=== PATIENT | male | born 1975 | race Caucasian/White ===

== ENCOUNTER 2022-03-10 18:55 | Emergency (ER) | payer MEDICAID, SELFPAY ==
[2022-03-10 19:15] VITALS: BP 183/88; PULSE 68; RESP 18; TEMP 36.6; O2SAT 98; BMI 51.6
[2022-03-10] MEDS: KETOROLAC 30 MG/ML inj IVP (20:34)
[2022-03-10] MEDS: 0.9 % SODIUM CHLORIDE 1000 ml 1,000 ML IV (20:34)
--- NOTE | 2022-03-10 20:38 | CRLHL7_ITS ---
For Patients: As a result of the Century Cures Act, medical imaging exams and procedure reports are released immediately into your electronic medical record. You may view this report before your referring provider. If you have questions, please contact your health care provider. INDICATION: Right flank pain. Abdominal pain. TECHNIQUE: CT abdomen and pelvis without contrast. COMPARISON: None. FINDINGS: Lower chest: Motion artifact. No focal consolidation. Evaluation of solid organs is limited secondary to lack of IV contrast administration. Liver: Diffuse hepatic steatosis. No suspicious focal hepatic lesion. Gallbladder and bile ducts: Layering hyperdense gallbladder sludge. No significant gallbladder wall thickening. No biliary duct dilation. Pancreas: Unremarkable. Spleen: Unremarkable. Adrenal glands: Unremarkable. Kidneys: Punctate 1-2 mm calculus at the right ureterovesicular junction/right posterior urinary bladder, with mild right hydronephrosis. No left hydronephrosis. Retroperitoneum: No lymphadenopathy. Bowel and mesentery: Bowel is nonobstructed. Appendix is not definitively visualized. No significant ascites. No pneumoperitoneum. Bladder: Decompressed. Reproductive organs: No significant prostatomegaly. Pelvic lymph nodes: No suspicious lymphadenopathy. Vessels: Unremarkable for unenhanced study. Abdominal wall: No acute abdominal wall abnormality. Bones: Extensive multilevel degenerative changes of the spine. Bones are osteopenic. IMPRESSION: 1. Punctate 1-2 mm calculus at the right ureterovesicular junction versus right posterior urinary bladder, resulting in mild right hydronephrosis. 2. Layering hyperdense gallbladder sludge. 3. Diffuse hepatic steatosis. Please note that all CT scans at this facility use dose modulation, iterative reconstruction, and/or weight-based dosing when appropriate to reduce radiation dose to as low as reasonably achievable. Dictated by Ligia Cyr MD @ 03/10/2022 9:55:41 PM (Electronically Signed)
[2022-03-10 20:44] LABS: Basophils Absolute Auto 0.06 K/uL (0.00-0.30); Basophils Percent Auto 0.9 % (0.0-3.0); Eosinophils Absolute Auto 0.06 K/uL (0.00-0.50); Eosinophils Percent Auto 0.9 % (0.0-7.0); Hematocrit 49.3 % (37.0-53.0); Hemoglobin* 16.2 gm/dL (13.5-17.5); Immature Granulocytes Abs Auto 0.02 K/uL (0.00-0.30); Lymphocytes Percent Auto 17.7 % (20-44); Mean Corpuscular HGB Conc 33 gm/dL (32-36); Mean Corpuscular Hemoglobin 32 pg (26-34); Mean Corpuscular Volume 97 fL (80-100); Monocytes Percent Auto 6.9 % (0.0-11.0); Neutrophils Percent Auto 73.3 % (42.0-72.0); Platelet Count* 208 K/uL (140-440); Red Blood Count 5.06 m/uL (4.30-5.90); White Blood Count* 6.51 K/uL (4.50-11.00)
[2022-03-10 20:46] LABS: Appearance Urine Clear (Clear); Bilirubin Urine Negative (Negative); Blood Urine 2+ (Negative); Color Urine Yellow (Yellow); Glucose Urine Negative (Negative); Ketones Urine Negative (Negative); Leukocyte Esterase Urine Negative (Negative); Nitrite Urine Negative (Negative); Protein Urine Negative (Negative); Slide Review Reflex No; Specific Gravity Urine >= 1.030 (1.000-1.030); Urobilinogen Urine 0.2 (0.2-1.0)
[2022-03-10 20:50] LABS: Albumin* 4.2 g/dL (3.3-5.0); Chloride* 106 mmol/L (96-114); Potassium* 4.7 mmol/L (3.6-5.1); RBC Urine 25-50 (0-2); Sodium* 140 mmol/L (135-149); Squamous Epithelial Cell Urine Moderate (None-Few)
[2022-03-10 20:52] LABS: Creatinine* 1.4 mg/dL (0.5-1.5); Est. Creatinine Clearance* 68.73; Estimated Glomerular Filt Rate 62 ml/min
[2022-03-10 20:53] LABS: Alanine Aminotransferase* 46 U/L (4-50); Alkaline Phosphatase* 107 U/L (40-150); Aspartate Amino Transferase* 48 U/L (12-35); Blood Urea Nitrogen* 20 mg/dL (5-24); Calcium* 9.2 mg/dL (8.4-10.6); Carbon Dioxide* 30 mmol/L (20-32); Glucose* 107 mg/dL (60-115); Total Protein* 8.2 g/dL (6.0-8.3)
--- NOTE | 2022-03-10 22:01 | ED.ABDPAIN ---
HPI - Abdominal Pain General Chief Complaint: Flank Pain Stated Complaint: Pain in right back and side Time Seen by Provider: 03/10/22 20:07 History of Present Illness HPI narrative: patient is a 47-year-old gentleman comes in today with moderate to right-sided flank pain. He has had kidney stones in the distant past. He has had no nausea no vomiting no fevers no chills. No other abdominal pain no changes bowel or bladder. Patient has had symptoms just today. Patient has otherwise been in his usual state of health with no other major complaints or concerns. Related Data Home Medications Medication Instructions Recorded Confirmed furosemide 20 mg tablet mg 03/10/22 Previous Rx's Medication Instructions Recorded cyclobenzaprine 10 mg tablet 5 - 10 mg PO BID PRN #30 tab 03/04/22 meloxicam 15 mg tablet 7.5 - 15 mg PO QDAY #90 tab 03/04/22 tamsulosin 0.4 mg capsule (Flomax) 0.4 mg PO DAILY #10 cap 03/10/22 Allergies Allergy/AdvReac Type Severity Reaction Status Date / Time No Known Allergies Allergy Unverified 03/10/22 19:18 Review of Systems Status of ROS Reports: 10 or more systems reviewed and unremarkable except as noted in History and below [facility] Medical History Encounter for follow-up Encounter for pre-operative examination Surgical History History of appendectomy Family History Sister Breast cancer Mother Stroke Father Dementia Social History Narrative: Does not drink alcohol Does not use illicit drugs Non-smoker Smoking Status: Never smoker Exam Narrative: Exam Narrative: EXAM GENERAL: Patient appears comfortable and well. Patient morb EYES: No scleral icterus. LYMPH: No supraclavicular or cervical lymphadenopathy. SKIN: Visible skin seen during exam normal or with benign process only. EXT: No dependent lower extremity pedal edema. Peripheral venous insufficiency noted. HEART: Regular rate and rhythm with no murmurs, rubs, or gallops. LUNGS: Clear to auscultation bilaterally with no crackles or wheezes. ABD: Soft, non tender, non distended. PSYCH: Good eye contact, speech is not pressured. Const: Vital Signs, click to edit/add: Vital Signs - 24 hr 03/10/22 19:15 Temperature 97.8 F Pulse Rate [Left P ulse Oximeter] 68 Respiratory Rate 18 Blood Pressure [Ri ght Upper Arm] 183/88 H Pulse Oximetry 98 Course Course Hospital Course: CT of the abdomen pelvis upon my review shows a very small 1-2 mm stone. Remainder lab workup is unremarkable. UA shows signs of hematuria without infec Reevaluation(s) Reevaluation #1: Patient visited after receiving a Annalee of normal saline And 30 mg of IV Toradol. He is feeling much better. Time: 22:04 Vital Signs Vital signs: Initial Vital Signs Temperature 97.8 F 03/10/22 19:15 Temperature Source Temporal Artery Scan 03/10/22 19:15 Pulse Rate 68 03/10/22 19:15 Respiratory Rate 18 03/10/22 19:15 Blood Pressure 183/88 H 03/10/22 19:15 Blood Pressure Mean 119 03/10/22 19:15 Pulse Oximetry 98 03/10/22 19:15 Oxygen Delivery Method 03/10/22 19:15 Vital Signs Temperature 97.8 F 03/10/22 19:15 Pulse Rate 68 03/10/22 19:15 Respiratory Rate 18 03/10/22 19:15 Blood Pressure 183/88 H 03/10/22 19:15 Pulse Oximetry 98 03/10/22 19:15 Temperature 97.8 F 03/10/22 19:15 Pulse Rate 68 03/10/22 19:15 Respiratory Rate 18 03/10/22 19:15 Blood Pressure 183/88 H 03/10/22 19:15 Pulse Oximetry 98 03/10/22 19:15 MDM - Abdominal Pain Lab Data Labs: Lab Results 03/10/22 03/10/22 03/10/22 Range/Units 20:32 20:32 20:32 WBC 6.51 (4.50-11.00) K/uL RBC 5.06 (4.30-5.90) m/uL Hgb 16.2 (13.5-17.5) gm/dL Hct 49.3 (37.0-53.0) % MCV 97 (80-100) fL MCH 32 (26-34) pg MCHC 33 (32-36) gm/dL RDW Coeff of Niels 13.0 (11.5-15.5) % Plt Count 208 (140-440) K/uL Neut % (Auto) 73.3 H (42.0-72.0) % Lymph % (Auto) 17.7 L (20-44) % Bandera % (Auto) 6.9 (0.0-11.0) % Eos % (Auto) 0.9 (0.0-7.0) % Baso % (Auto) 0.9 (0.0-3.0) % Neut # (Auto) 4.80 (1.7-7.0) K/uL Lymph # (Auto) 1.20 (0.90-2.90) K/uL Bandera # (Auto) 0.40 (0.00-0.90) K/UL Eos # (Auto) 0.06 (0.00-0.50) K/uL Baso # (Auto) 0.06 (0.00-0.30) K/uL Abs Immat Gran (auto) 0.02 (0.00-0.30) K/uL Sodium 140 (135-149) mmol/L Potassium 4.7 (3.6-5.1) mmol/L Chloride 106 (96-114) mmol/L Carbon Dioxide 30 (20-32) mmol/L BUN 20 (5-24) mg/dL Creatinine 1.4 (0.5-1.5) mg/dL Estimated Creat Clear 68.73 Estimated GFR 62 ml/min Glucose 107 (60-115) mg/dL Calcium 9.2 (8.4-10.6) mg/dL Total Bilirubin 1.0 (0.1-1.5) mg/dL AST 48 H (12-35) U/L ALT 46 (4-50) U/L Alkaline Phosphatase 107 (40-150) U/L Total Protein 8.2 (6.0-8.3) g/dL Albumin 4.2 (3.3-5.0) g/dL Urine Color Yellow (Yellow) Urine Appearance Clear (Clear) Urine pH 5.0 (5.0-8.5) Ur Specific [place] >= 1.030 (1.000-1.030) Urine Protein Negative (Negative) Urine Glucose (UA) Negative (Negative) Urine Ketones Negative (Negative) Urine Blood 2+ A (Negative) Urine Nitrite Negative (Negative) Urine Bilirubin Negative (Negative) Urine Urobilinogen 0.2 (0.2-1.0) Ur Leukocyte Esterase Negative (Negative) Urine RBC 25-50 A (0-2) Urine WBC 5-10 A (0-5) Ur Squamous Epith Cells Moderate A (None-Few) Urine Bacteria None (None) Discharge Plan Discharge Clinical Impression: Renal lithiasis Patient Disposition: Home, Self-Care Condition: Stable Instructions: Kidney Stones (ED) Additional Instructions: Rest Fluids Tylenol Motrin Flomax as directed Activity Level: No Restrictions Discharge Diet: Regular Prescriptions: New tamsulosin [Flomax] 0.4 mg capsule 0.4 mg PO DAILY Qty: 10 2RF No Action meloxicam 15 mg tablet 7.5 - 15 mg PO QDAY Qty: 90 1RF Rx Instructions: daily for ongoing back pain cyclobenzaprine 10 mg tablet 5 - 10 mg PO BID PRN (Reason: muscle spasm) Qty: 30 2RF Rx Instructions: as needed for severe back pain furosemide 20 mg tablet 0RF Label Comments: TAKE 1 TABLET BY MOUTH DAILY Follow Up/Referrals: Ashley Dennis MD [Primary Care Provider] - Stand Alone Forms: Advanced Electron [employer] Info Instructions
[2022-03-10 22:23] VITALS: BP 138/80; PULSE 61; RESP 20; O2SAT 98
== END 2022-03-10 22:24 | disposition home or self-care (01) ==
PROVIDERS: Emergency Provider Internal Medicine; PCP Family Medicine
DX: N13.2 Hydronephrosis with renal and ureteral calculous obstruction (principal)
CPT/HCPCS: 36415; 74176; 80053; 81003; 81015; 85025; 87086; 87186; 96374; 99283; 99284; J1885; J7030

== ENCOUNTER 2022-06-23 15:30 | Outpatient (RCR) | payer MEDICAID, SELFPAY ==
--- NOTE | 2022-04-24 12:13 | PT.OPE ---
[facility] Outpatient Eval [facility] Outpatient Eval Start: 04/24/22 10:50 Freq: Status: Active Protocol: Document 04/24/22 10:50 KNRaul (Rec: 04/24/22 11:41 NOE Desktop) E-signed By Arnold Solorio, PT, ATC Physical Therapy Outpatient Evaluation Insurance Information Insurance Name [employer] Medical Diagnosis M54.50 low back pain, unspecified Treating Diagnosis low back pain pain in back of L knee Referring MD Brown Subjective Subjective History of back pain since . Symptoms are left sided lower back pain that extends into front-side of left thigh. Worse with standing, max stand duration estimated at about an hour. Maximum walking duration estimated at about an hour as well. Does better if he can lean on a cart while shopping. Symptoms present with sitting however less intense. Some recognition of LE deconditioning/strength loss in the L leg. Notices most often with standing from sitting as both UE's are required. Sleeps in a recliner because all positions in his bed create back symptoms. Medications for his back include: Cyclobenzaprene and Meloxicam. Taken at night as they cause drowziness. Pain Comments Constant varies in range from 6-8/10. Date of Last Physician Visit 04/10/22 Current Work Status Behavior Therapist Preferred Name Alex Miller Weight Bearing Status Full Weight Bearing Therapy Limitations/Systems Review Communication Ability,Affect Objective Range of Motion Trunk FLEX 30 degrees 14 inches fingertips to floor. EXT 2-3 degrees, pain producing. L SB 5 degrees, pain producing R SB 5 degrees L ROT 5 degrees, pain producing R ROT 5 degrees Strength LE strength 5/5 for all hip, knee and ankle patterns. Symmetric between sides Swelling Both LE's below the knee are swollen-wears compression socks. Palpation Moderate tenderness over L SI and lower lumbar vertebrae. Lumbar paraspinals and gluteal muscles on both sides hole elevated tension Posture Morbidly obese Stands in with a flexed trunk, forward shoulders and head. Increased lumbar lordosis. Sensation/Reflexes DTR patella R and L normal achilles R and L diminished ( likely from swelling in lower legs) Other/Pertinent Objective Walks with a forward lean, absent UE arm swing, no trunk: pelvis dissociation Assessment Assessment/Impression Simon is a pleasant 47 year old who is currently unemployed x 2-3 years. His ability to comprehend information is good yet his verbal delivery is slow and at times he stutters. He was referred to PT because of significant degenerative changes in his lumbar spine- bridging osteophytes exist between vertebral bodies, facet arthropathy and spondylolisthesis (unspecified level). Dr. Brown referred him to us to participate in the Back Program 2x/week for 6 -9 weeks. The patient appears very deconditioned and over weight. His ability for transfers from various surfaces is guarded and complicated for him. An increase in L sided lower back pain is reported with all transfers, standing and walking. He has very poor control of his pelvis, gluteal and abdominal muscles. All standing and walking has a flexion bias due to his lower spine condition and pain elicitation with upright positions. Simon understands the frequency and length of the designed back program and seems interested in participation. He also understands that complete elimination of back and leg symptoms may not be a realistic short term goal yet would find daily activities and the ability to return to work more likely if symptoms can be reduced. Primary Functional Limitations Standing Walking Climbing and descending stairs Lifting items from the floor Sleeping Plan of Care Rehabilitation Potential Fair Physical Therapy Goals 1.Performance of home ex program for core, hip and LE strengthening 2x/day x 7 days a week. 2.Able to stand while preparing meals x 15 min.s without limitation for L sided lower back or anterolateral L thigh pain. 3.To walk x 20 min.s working on equal stride length, more upright trunk posture while incorporating trunk rotation and arm swing. 4.Able to lift 20 pounds from floor to waist level using proper BM's x 5 repetitions without increase in lower back or leg pain. 5.Decrease constant pain symptom average to 4/10 or less in the lower back and left thigh Coordination/Communication With Referral Source Frequency/Duration 2x per week 6-9 weeks Patient Will Be Discharged From Therapy Independent w/HEP, Independently Progressing Evaluation Billing Untimed Code Treatment Minutes 45 PT Eval No Charge No Complexity Low Certification Information Physician Comment/Change Comment or Changes Physician NPI Number #
== END 2023-03-05 23:59 | disposition home or self-care (01) ==
PROVIDERS: PCP Family Medicine; Visit Provider Family Medicine
DX: M54.50 Low back pain, unspecified (principal); Z51.89 Encounter for other specified aftercare
CPT/HCPCS: 97110; 97161

== ENCOUNTER 2023-03-16 09:41 | Outpatient (CLI) | payer MEDICAID, SELFPAY | END 2023-03-16 09:42 | disposition home or self-care (01) | PROVIDERS: PCP Family Medicine; Visit Provider Family Medicine | DX: Z00.00 Encounter for general adult medical examination without abnormal findings (principal); R03.0 Elevated blood-pressure reading, without diagnosis of hypertension; R77.9 Abnormality of plasma protein, unspecified; E66.2 Morbid (severe) obesity with alveolar hypoventilation; R79.89 Other specified abnormal findings of blood chemistry; E66.01 Morbid (severe) obesity due to excess calories; Z13.6 Encounter for screening for cardiovascular disorders; Z11.59 Encounter for screening for other viral diseases | CPT/HCPCS: 80053; 80061; 84165; 84443; 86803 ==

== ENCOUNTER 2025-04-23 10:47 | Emergency (ER) | payer MEDICAID, SELFPAY ==
--- OUTSIDE RECORDS SUMMARY | 2025-04-23 10:50 | XMS_ITS | Clinical Summary ---
Author Organization [facility] [employer] [facility] Address [address] [place] [id number] Care Team Providers Care Vamp Seamer Name Role Phone Martha Garner MD Primary Care Provid er Allergies No known active allergies Medications miscellaneous medical supply miscIndications:O pen wound of both lower extremities, subsequent encounter,Lymphed coco due to venous insufficiency As directed. Bilateral compression velcro wraps 20-30 mmHg, knee high. Compression in the foot please. Style per patient preference. 2 unit 3 5 Active miscellaneous medical supply miscIndications:L ymphedema due to venous insufficiency As directed. Bilateral compression socks 20-30 mmHg, knee high. Style per patient preference. 2 unit 3 5 Active furosemide 20 mg tabletIndications :Bilateral leg edema Take 1 Tablet (20 mg) by mouth once daily in the morning. 7 Tablet 5 Active cyclobenzaprine 10 mg tabletIndications :Acute pain of right knee Take 1 Tablet (10 mg) by mouth 3 times daily if needed for Muscle Spasm. 14 Tablet 5 Active Active Problems Problem Noted Date Diagnosed Date Open wound of both lower extremities 06/10/2024 Venous stasis of both lower extremities 06/10/20 24 Encounters Date Type Department Care Team Description 03/12/2025 Travel 02/15/2025 8:00 PM CDT Ancillary Procedure [facility] [address] [place] [address] 02/15/2025 7:35 PM CDT Office Visit [facility] [id number] [place] [id number] Angel Lind PA Knee Pain/problem 02/15/2025 Travel from Last 3 Months Immunizations Immunization Administration Dates Next Due Td, Preservative Free (age >= 7 Years) Tdap 04/03/2011 Social History Tobacco Use Types Packs/Day Years Used Date Smoking Tobacco: Never Smokeless Tobacco: Never Alcohol Use Standard Drinks/Week Comments Never 0 (1 standard drink = 0.6 oz pur e alcohol) PHQ-2 Answer Date Recorded PHQ-2 TOTAL SCORE 3 06/08/2024 Social Connections Answer Date Recorded Do you often feel lonely or isolated from those around you? 0 07/05/2024 Financial Resource Strain Answer Date R ecorded Difficulty of Paying Living Expenses 3 07/05/2024 Difficulty of Paying Living Expenses Not on file 07/05/2024 Food Insecurity Answer Date Recorded Do you worry your food will run out before you are able to buy more? 1 07/05/2024 Transportation Needs Answer Date Record ed Does lack of transportation keep you from medica l appointments? 1 07/05/2024 Does lack of transportation keep you from work, meetings or getting things that you need? 1 07/05/2024 Housing Stability Answer Date Recorded What is your housing situation today? 1 07/05/2024 Utilities Answer Date Recorded Do you have trouble paying f or utilities (for example, heat, electricity, water, phone)? 1 07/05/2024 Sex and Gender Information Value Date Recorded Sex Assigned at Not on file Legal Sex Male 7:59 AM [employer] Gender Identity Not on file Sexual Orientation Not on file Obstetrics History Last Filed Vital Signs Vital Sign Reading Time Taken Comments Blood Pressure 147/82 02/15/2025 7:38 PM CDT Pulse 80 02/15/2025 7:38 PM CDT Temperature 36.1 C (96.9 F) 02/15/2025 7:38 PM CDT Respiratory Rate 20 02/15/2025 7:38 PM CDT Oxygen Saturation 90% 02/15/2025 7:38 PM CDT Inhaled Oxygen Concentration - - Weight 179 kg (394 lb 11.2 oz) 11/23/2024 9:16 A M CDT Height 180 cm (5' 10.87) 06/08/2024 2:19 PM CDT Body Mass Index 55.26 06/08/2024 2:19 PM CDT Plan of Treatment Health Maintenance Due Date Last Done Comments HIV for age 15-65 1989 Hepatitis C screening for age 18-79 02/10/1992 Hepatitis B series for 19+ ( 1 of 3 - 19+ 3-dose series) 1993 Colonoscopy through age 75 2019 Pneumococcal series for age 50+ (1 of 1 - PCV) 02/10/2024 Zoster (shingles) series for age 50+ (1 of 2) 02/10/2024 COVID-19 vaccine series (1 - 2023- season) 2025 Influenza Vaccine (#1) 2025 BMI (ht and wt on same day) for age 18+ 06/08/2025 06/08/2024 Depression screening for age 12+ 06/10/2025 06/10/2024, 06/10/2024, 06/08/2024 Lipids for age 45-75 06/08/2029 06/08/2024 Tetanus booster 03/16/2033 03/16/2023, 03/17, 04/03/2011 RSV vaccine for adults or pr egnancy (1 - 1-dose 75+ series) 2049 Procedures Procedure Name Priority Date/Time Associated Diagnosis Comments XR KNEE 3 VIEWS RIGHT STAT 02/15/2025 8:15 PM CDT Acute pain of right knee LIPID PANEL W REFLEX MEASURED LDL Routine 06/08/2024 3:41 PM CDT Screening for lipid disorders from Last 3 Months or Most Recently Relevant to Health Maintenance Results * XR KNEE 3 VIEWS RIGHT (02/15/2025 8:15 PM CDT) Anatomical Region Laterality Modality KNEES, KNEE R Computed Radiogr aphy 02/15/2025 8:15 PM CDT Impressions 02/15/2025 8:20 PM CDT Mild medial and patellofemoral compartment arthrosis. Bones are demineralized. There is no evidence of an acute fracture. Soft tissue swelling. Narrative 02/15/2025 8:20 PM CDT For Patients: As a result of the Cures Act, medical imaging exams and procedure reports are released immediately into your electronic medical record. You may view this report before your referring provider. If you have questions, please contact your health care provider. EXAM: XR KNEE 3 VIEWS RIGHT LOCATION: [facility] DATE: 02/15/2025 INDICATION: Acute pain of right knee. COMPARISON: None. Procedure Note Bg Dos Santos MD - 02/15/2025 For Patients: As a result of the Cures Act, medical imagingexams and procedure reports are released immediately into your electronicmedical record. You may view this report before your referring provider.If you have questions, please contact your health care provider. EXAM: XR KNEE 3 VIEWS RIGHT LOCATION: [facility] DATE: 02/15/2025 INDICATION: Acute pain of right knee. COMPARISON: None. IMPRESSION: Mild medial and patellofemoral compartment arthrosis. Bones aredemineralized. There is no evidence of an acute fracture. Soft tissueswelling. Angel [facility] Sera l Result * (ABNORMAL) LIPID PANEL W REFLEX MEASURED LDL [[id number]] (06/08/2024 3:41 PM CDT) [facility] CHOLESTEROL, TOTAL 168 <200 mg/dL [facility] HDL CHOLESTEROL 45 > OR = 40 mg/dL [facility] TRIGLYCERIDES 100 <150 mg/dL [facility] LDL-CHOLESTEROL 103(H) mg/dL (calc) [facility] Comment: Reference range: <100 Desirable range <100 mg/dL for primary prevention; <70 mg/dL for patients with CHD or diabetic patients with > or = 2 CHD risk factors. LDL-C is now calculated using the Aguilar calculation, which is a validated novel method providing better accuracy than the Friedewald equation in the estimation of LDL-C. Rom SHERMAN et al. MICHAEL. 2013;310(19): 9926-7192 (http://education.AddThis.PrismaStar/faq/QTG864) CHOL/HDLC RATIO 3.7 <5.0 (calc) [facility] NON HDL CHOLESTEROL 123 <130 mg/dL (calc) [facility] Comment: For patients with diabetes plus 1 major ASCVD risk factor, treating to a non-HDL-C goal of <100 mg/dL (LDL-C of <70 mg/dL) is considered a therapeutic option. Blood BLOOD SPECIMEN / Unknown 06/08/2024 3:41 PM CDT 06/08/2024 3:42 PM CDT Narrative [facility] - 06/09/2024 3:56 AM CDT MULTIPLE TESTING PRIORITIES; ROUTINE TESTING TO FOLLOW. us Martha Garner MD CHEMISTRY Sera l Result [facility] [address] [place] [address], [facility] [address] [place] [address] from Last 3 Months or Most Recently Relevant to Health Maintenance Insurance [facility] Care Teams Vamp Seamer Relationship Specialty [place] [address] [place] [address] PCP - General Family Practice 06/08/24
[2025-04-23 10:59] VITALS: BP 142/84; PULSE 81; RESP 20; TEMP 37.4; O2SAT 95; BMI 55.5
--- NOTE | 2025-04-23 11:17 | CRLHL7_ITS ---
For Patients: As a result of the Century Cures Act, medical imaging exams and procedure reports are released immediately into your electronic medical record. You may view this report before your referring provider. If you have questions, please contact your health care provider. INDICATION: Shortness of breath. TECHNIQUE: Chest 2 views. COMPARISON: None FINDINGS: Tubes and devices: None. Lungs: Lungs are clear. No sign of infiltrate or mass. Pleura: No pleural effusion. No pneumothorax. Heart: Heart size and vasculature are normal in caliber and appearance. Clara and Mediastinum: No enlargement. Bones and soft tissues: No significant findings. IMPRESSION: Unremarkable chest. Dictated by Aman Arroyo MD @ 04/23/2025 11:55:08 AM (Electronically Signed)
--- NOTE | 2025-04-23 11:39 | ED_ITS ---
HPI - General Adult General Date Seen: 04/23/25 Chief complaint: Edema Stated complaint: Both legs swollen, bleeding Time Seen by Provider: 04/23/25 10:58 Source: patient Mode of arrival: ambulatory Limitations: no limitations History of Present Illness HPI narrative: Patient is a 50-year-old male with morbid obesity, bilateral lower extremity edema, hypertension presenting to the emergency department for lower extremity swelling. States he has been dealing with this lower extremity edema for several years now and previously when he would be placed on Lasix and code to wound clinic things would get better. Is not currently seen the wound clinic. States his legs have been increased and swelling with multiple blisters for the past 3 weeks. States had symptoms like this lower similar previous sleep but they have never been this bad. Has not had any fevers, chills, chest pain, shortness of breath, weakness, numbness, abdominal pain. Does state he has pain in his legs. States he is not currently have a primary care provider so he is unable to get more Lasix for his swelling. No other concerns noted Related Data Home Medications ?Medication ?Instructions ?Recorded ?Confirmed furosemide 20 mg tablet 20 mg PO DAILY 03/17/2509/10 Previous Rx's ?Medication ?Instructions ?Recorded cyclobenzaprine 10 mg tablet 10 mg PO BID PRN muscle s pasm #30 03/17/25 tabs celecoxib 200 mg capsule (Celebrex) 200 mg PO BID PRN pain #60 caps 04/20/25 furosemide 20 mg tablet (Lasix) 20 mg PO DAILY #5 tabs 04/23/25 Allergies Allergy/AdvReac Type Severity Reaction Status Date / Time No Known Allergies Allergy Unverified 03/17/25 10:03 Review of Systems Status of ROS: Reports: 10 or more systems reviewed and unremarkable except as noted in History and below [facility] Medical History Open wound of both lower extremities ?S81.801A - Unspecified open wound, right lower leg, initial encounter (ICD- 10) ?S81.802A - Unspecified open wound, left lower leg, initial encounter (ICD- 10) Venous stasis of both lower extremities ?I87.8 - Other specified disorders of veins (ICD-10) Renal lithiasis ?N20.0 - Calculus of kidney (ICD-10) Surgical History History of appendectomy ?Z90.49 - Acquired absence of other specified parts of digestive tract (ICD- 10) Family History Sister Breast cancer Mother Stroke Father Dementia Social History Narrative: Does not drink alcohol Does not use illicit drugs Non-smoker Smoking Status: Never smoker How often do you have a drink containing alcohol: never AUDIT-C Alcohol total score: 0 Non-prescribed substance use: denies use Exam Narrative: Exam Narrative: Const: Well-nourished, Well-developed, in mild distress Eyes: PERRL, no conjunctival injection, and symmetrical lids HENT: Atraumatic external nose and ears. Moist mucous membranes. Neck: Symmetric, trachea midline, No thyromegaly. CVS: RRR, No murmurs or gallops. Peripheral pulses 2+ and equal in all extremities RESP: Unlabored respiratory effort. Clear to auscultation bilaterally. GI: Nontender/Nondistended, No rebound or guarding. Extremities:Extremities w/o deformity, Normal Active ROM, +3 bilateral lower extremity pitting edema 2[address] the linda. Erythematous but cool to th e touch bilaterally in the area of the rash and swelling. There is some clear discharge coming from some of his open blisters Skin: Warm, Dry. No rashes or lesions. Neuro: Normal Muscle tone, No focal neurological deficits. Psych: Awake, Alert, & Oriented x3. Appropriate mood and affect. Const: Vital Signs, click to edit/add: Vital Signs - 24 hr 04/23/25 10:59 Temperature 99.4 F Pulse Rate [Pulse Oximeter] 81 Respiratory Rate 20 Blood Pressure [Ri ght Upper Arm] 142/84 H Pulse Oximetry 95 Oxygen Delivery Me thod Room Air Course Vital Signs Vital signs: Initial Vital Signs Temperature 99.4 F 04/23/25 10:59 Temperature Source Temporal Artery Scan 04/23/25 10:59 Pulse Rate 81 04/23/25 10:59 Respiratory Rate 20 04/23/25 10:59 Blood Pressure 142/84 H 04/23/25 10:59 Blood Pressure Mean 103 04/23/25 10:59 Pulse Oximetry 95 04/23/25 10:59 Oxygen Delivery Method Room Air 04/23/25 10:59 Vital Signs Temperature 99.4 F 04/23/25 10:59 Pulse Rate 81 04/23/25 10:59 Respiratory Rate 20 04/23/25 10:59 Blood Pressure 142/84 H 04/23/25 10:59 Pulse Oximetry 95 04/23/25 10:59 Oxygen Delivery Method Room Air 04/23/25 10:59 Temperature 99.4 F 04/23/25 10:59 Pulse Rate 81 04/23/25 10:59 Respiratory Rate 20 04/23/25 10:59 Blood Pressure 142/84 H 04/23/25 10:59 Pulse Oximetry 95 04/23/25 10:59 Oxygen Delivery Method Room Air 04/23/25 10:59 Medical Decision Making MDM Narrative Medical decision making narrative: Patient is a 50-year-old male presenting to the emergency department for lower extremity edema. This is very possibly venous stasis. Could also be related to heart failure, cirrhosis, nephrotic syndrome. Will order CBC, CMP, EKG, troponin, chest x-ray, urinalysis. This does not appear to be cellulitis. EKG independently reviewed by myself shows no acute concerning abnormalities. Lab work returned showing no acute concerning abnormalities. Did given referral for wound clinic and will start him on 5 days of Lasix. Do not want to give him more as he still needs to set up primary care and I do not want him to develop electrolyte abnormalities. he has been on this dose before. Did provide him info for primary care follow-up. Lab Data Labs: Lab Results 04/23/25 04/23/25 Range/Units 11:45 12:43 WBC 8.03 (4.50-11.00) K/uL RBC 4.74 (4.30-5.90) m/uL Hgb 15.4 (13.5-17.5) gm/dL Hct 46.6 (37.0-53.0) % MCV 98 (80-100) fL MCH 33 (26-34) pg MCHC 33 (32-36) gm/dL RDW Coeff of Niels 13.5 (11.5-15.5) % Plt Count 274 (140-440) K/uL Neut % (Auto) 67.2 (42.0-72.0) % Lymph % (Auto) 19.6 L (20-44) % [facility] % (Auto) 8.3 (0.0-11.0) % Eos % (Auto) 3.4 (0.0-7.0) % Baso % (Auto) 0.9 (0.0-3.0) % Neut # (Auto) 5.40 (1.7-7.0) K/uL Lymph # (Auto) 1.60 (0.90-2.90) K/uL [facility] # (Auto) 0.70 (0.00-0.90) K/UL Eos # (Auto) 0.27 (0.00-0.50) K/uL Baso # (Auto) 0.07 (0.00-0.30) K/uL Abs Immat Gran (auto) 0.05 (0.00-0.30) K/uL Imm/Tot Granulo (auto) 0.6 % Sodium 138 (135-149) mmol/L Potassium 4.4 (3.6-5.1) mmol/L Chloride 105 (96-114) mmol/L Carbon Dioxide 27 (20-32) mmol/L Anion Gap 6 L (7-15) mEq/L BUN 14 (7-30) mg/dL Creatinine 1.0 (0.5-1.5) mg/dL Estimated Creat Clear 93.08 Estimated GFR 91 ml/min Glucose 145 H (60-115) mg/dL Calcium 9.4 (8.4-10.6) mg/dL Total Bilirubin 1.1 (0.1-1.5) mg/dL Direct Bilirubin 0.3 (0.0-0.5) mg/dL AST 42 H (12-35) U/L ALT 30 (4-50) U/L Alkaline Phosphatase 112 (40-150) U/L Total Protein 7.9 (6.0-8.3) g/dL Albumin 3.8 (3.3-5.0) g/dL Urine Color Anne A (Yellow) Urine Appearance Cloudy A (Clear) Urine pH 5.5 (5.0-8.5) Ur Specific [place] >= 1.030 (1.000-1.030) Urine Protein 1+ A (Negative) Urine Glucose (UA) Negative (Negative) Urine Ketones Negative (Negative) Urine Blood Trace-intact A (Negative) Urine Nitrite Negative (Negative) Urine Bilirubin Negative (Negative) Urine Urobilinogen 1.0 (0.2-1.0) Ur Leukocyte Esterase Negative (Negative) Urine RBC 0-2 (0-2) Urine WBC 2-5 (0-5) Ur Squamous Epith Cells Many A (None-Few) Amorphous Sediment Moderate A (None) Other Sediment FEW YEAST (None) Urine Bacteria Moderate A (None) Urine Mucus Moderate A (None) POC Troponin I 0.00 L (0.01-0.04) ng/ml Imaging Data Chest x-ray: Attestation: I have reviewed the pertinent imaging results. Radiologist's impression: Unremarkable chest. Dictated by Aman Arroyo MD @ 04/23/2025 11:55:08 AM ECG Data Attestation: I personally reviewed and interpreted this ECG as follows: Prior ECG tracings: not available for review Interpretation: Normal sinus rhythm with rate 79 beats per minute, normal intervals, normal axis, no ST or T-wave abnormalities. Discharge Plan Discharge Clinical Impression: Bilateral edema of lower extremity Patient Disposition: Home, Self-Care Condition: Stable Instructions: Leg Edema (ED) Additional Instructions: You should get a call tomorrow from the wound clinic to set up an appointment. Will also provide you with 5 days of Lasix. Make sure to set up a primary care provider as soon as possible. Prescriptions: New furosemide [Lasix] 20 mg tablet 20 mg PO DAILY Qty: 5 0RF No Action furosemide 20 mg tablet 20 mg PO DAILY cyclobenzaprine 10 mg tablet 10 mg PO BID PRN (Reason: muscle spasm) Qty: 30 0RF celecoxib [Celebrex] 200 mg capsule 200 mg PO BID PRN (Reason: pain) Qty: 60 0RF Follow Up/Referrals: Yuni Lux MD [Primary Care Provider, Family Practice] Stand Alone Forms: [employer] Info Instructions
[2025-04-23 11:52] LABS: Hematocrit 46.6 % (37.0-53.0); Hemoglobin* 15.4 gm/dL (13.5-17.5); Immature Granulocytes Abs Auto 0.05 K/uL (0.00-0.30); Immature Granulocytes Pct Auto 0.6 %; Mean Corpuscular HGB Conc 33 gm/dL (32-36); Mean Corpuscular Hemoglobin 33 pg (26-34); Mean Corpuscular Volume 98 fL (80-100); RDW Coefficient of Variation % 13.5 % (11.5-15.5); Red Blood Count 4.74 m/uL (4.30-5.90); White Blood Count* 8.03 K/uL (4.50-11.00)
[2025-04-23 12:00] LABS: Troponin, Point-of-Care* 0.00 ng/ml (0.01-0.04)
[2025-04-23 12:05] LABS: Albumin* 3.8 g/dL (3.3-5.0); Chloride* 105 mmol/L (96-114); Potassium* 4.4 mmol/L (3.6-5.1); Sodium* 138 mmol/L (135-149)
[2025-04-23 12:08] LABS: Alanine Aminotransferase* 30 U/L (4-50); Alkaline Phosphatase* 112 U/L (40-150); Anion Gap 6 mEq/L (7-15); Aspartate Amino Transferase* 42 U/L (12-35); Bilirubin Direct* 0.3 mg/dL (0.0-0.5); Bilirubin Total* 1.1 mg/dL (0.1-1.5); Blood Urea Nitrogen* 14 mg/dL (7-30); Calcium* 9.4 mg/dL (8.4-10.6); Carbon Dioxide* 27 mmol/L (20-32); Creatinine* 1.0 mg/dL (0.5-1.5); Est. Creatinine Clearance* 93.08; Estimated Glomerular Filt Rate 91 ml/min; Glucose* 145 mg/dL (60-115); Total Protein* 7.9 g/dL (6.0-8.3)
[2025-04-23 12:09] LABS: Lymphocytes Absolute Auto 1.60 K/uL (0.90-2.90); Slide Review Reflex No
[2025-04-23 12:48] LABS: Appearance Urine Cloudy (Clear)
[2025-04-23 13:09] LABS: Other Sediment Urine FEW YEAST
== END 2025-04-23 13:35 | disposition home or self-care (01) ==
PROVIDERS: Emergency Provider Student in an Organized Health Care Education/Training Program; PCP Family Medicine
DX: R60.0 Localized edema (principal)
CPT/HCPCS: 36415; 71046; 80048; 80076; 81001; 84484; 85025; 87086; 93005; 99284

== ENCOUNTER 2025-04-28 09:18 | Outpatient (CLI) | payer MEDICAID, SELFPAY | END 2025-04-28 09:19 | disposition home or self-care (01) | LOC: WOUND 09:18 | PROVIDERS: PCP Family Medicine; Visit Provider Nurse Practitioner Family | DX: I89.0 Lymphedema, not elsewhere classified (principal); I10 Essential (primary) hypertension; L97.822 Non-pressure chronic ulcer of other part of left lower leg with fat layer exposed; L97.812 Non-pressure chronic ulcer of other part of right lower leg with fat layer exposed | CPT/HCPCS: 97597; 97598; G0463 ==

== ENCOUNTER 2025-05-05 09:16 | Outpatient (CLI) | payer MEDICAID, SELFPAY | END 2025-05-05 09:17 | disposition home or self-care (01) | LOC: WOUND 09:16 | PROVIDERS: PCP Family Medicine; Visit Provider Nurse Practitioner Family | DX: I87.313 Chronic venous hypertension (idiopathic) with ulcer of bilateral lower extremity (principal); I89.0 Lymphedema, not elsewhere classified; L97.812 Non-pressure chronic ulcer of other part of right lower leg with fat layer exposed; L97.822 Non-pressure chronic ulcer of other part of left lower leg with fat layer exposed; I10 Essential (primary) hypertension | CPT/HCPCS: G0463 ==

== ENCOUNTER 2025-05-19 09:04 | Outpatient (CLI) | payer MEDICAID, SELFPAY | END 2025-05-19 09:05 | disposition home or self-care (01) | LOC: WOUND 09:04 | PROVIDERS: PCP Nurse Practitioner Family; Visit Provider Family Medicine | DX: I89.0 Lymphedema, not elsewhere classified (principal); I87.313 Chronic venous hypertension (idiopathic) with ulcer of bilateral lower extremity; L97.822 Non-pressure chronic ulcer of other part of left lower leg with fat layer exposed; L97.812 Non-pressure chronic ulcer of other part of right lower leg with fat layer exposed; I10 Essential (primary) hypertension | CPT/HCPCS: 11042; 11045 ==

== ENCOUNTER 2025-05-26 09:04 | Outpatient (CLI) | payer MEDICAID, SELFPAY | END 2025-05-26 09:05 | disposition home or self-care (01) | LOC: WOUND 09:04 | PROVIDERS: PCP Nurse Practitioner Family; Visit Provider Nurse Practitioner Family | DX: I89.0 Lymphedema, not elsewhere classified (principal); I87.313 Chronic venous hypertension (idiopathic) with ulcer of bilateral lower extremity; L97.822 Non-pressure chronic ulcer of other part of left lower leg with fat layer exposed; L97.812 Non-pressure chronic ulcer of other part of right lower leg with fat layer exposed; I10 Essential (primary) hypertension | CPT/HCPCS: G0463 ==

== ENCOUNTER 2025-05-30 12:57 | Outpatient (CLI) | payer MEDICAID, SELFPAY | END 2025-05-30 12:58 | disposition home or self-care (01) | LOC: WOUND 12:57 | PROVIDERS: PCP Nurse Practitioner Family; Visit Provider Nurse Practitioner Family | DX: I89.0 Lymphedema, not elsewhere classified (principal); I87.313 Chronic venous hypertension (idiopathic) with ulcer of bilateral lower extremity; L97.822 Non-pressure chronic ulcer of other part of left lower leg with fat layer exposed; L97.812 Non-pressure chronic ulcer of other part of right lower leg with fat layer exposed; I10 Essential (primary) hypertension | CPT/HCPCS: 11042; 97597 ==

== ENCOUNTER 2025-06-09 09:02 | Outpatient (CLI) | payer MEDICAID, SELFPAY | END 2025-06-09 09:03 | disposition home or self-care (01) | LOC: WOUND 09:02 | PROVIDERS: PCP Nurse Practitioner Family; Visit Provider Nurse Practitioner Family | DX: I89.0 Lymphedema, not elsewhere classified (principal); I87.311 Chronic venous hypertension (idiopathic) with ulcer of right lower extremity; L97.812 Non-pressure chronic ulcer of other part of right lower leg with fat layer exposed; I10 Essential (primary) hypertension | CPT/HCPCS: 11042; 11045 ==

== ENCOUNTER 2025-06-23 09:09 | Outpatient (CLI) | payer MEDICAID, SELFPAY | END 2025-06-23 09:10 | disposition home or self-care (01) | LOC: WOUND 09:09 | DX: I89.0 Lymphedema, not elsewhere classified (principal); I87.313 Chronic venous hypertension (idiopathic) with ulcer of bilateral lower extremity; L97.812 Non-pressure chronic ulcer of other part of right lower leg with fat layer exposed; L97.822 Non-pressure chronic ulcer of other part of left lower leg with fat layer exposed; I10 Essential (primary) hypertension | CPT/HCPCS: G0463 ==

== ENCOUNTER 2025-06-30 09:13 | Outpatient (CLI) | payer MEDICAID, SELFPAY | END 2025-06-30 09:14 | disposition home or self-care (01) | LOC: WOUND 09:13 | PROVIDERS: Visit Provider Nurse Practitioner Family | DX: I89.0 Lymphedema, not elsewhere classified (principal); I87.313 Chronic venous hypertension (idiopathic) with ulcer of bilateral lower extremity; L97.812 Non-pressure chronic ulcer of other part of right lower leg with fat layer exposed; L97.822 Non-pressure chronic ulcer of other part of left lower leg with fat layer exposed | CPT/HCPCS: G0463 ==

== ENCOUNTER 2025-07-07 09:14 | Outpatient (CLI) | payer MEDICAID, SELFPAY | END 2025-07-07 09:15 | disposition home or self-care (01) | LOC: WOUND 09:14 | PROVIDERS: Visit Provider Nurse Practitioner Family | DX: I89.0 Lymphedema, not elsewhere classified (principal); I87.313 Chronic venous hypertension (idiopathic) with ulcer of bilateral lower extremity; L97.822 Non-pressure chronic ulcer of other part of left lower leg with fat layer exposed; L97.812 Non-pressure chronic ulcer of other part of right lower leg with fat layer exposed | CPT/HCPCS: 97597; 97598 ==

== ENCOUNTER 2025-07-14 09:11 | Outpatient (CLI) | payer MEDICAID, SELFPAY | END 2025-07-14 09:12 | disposition home or self-care (01) | LOC: WOUND 09:11 | PROVIDERS: Visit Provider Physician Assistant | DX: I89.0 Lymphedema, not elsewhere classified (principal); I87.313 Chronic venous hypertension (idiopathic) with ulcer of bilateral lower extremity; L97.822 Non-pressure chronic ulcer of other part of left lower leg with fat layer exposed; L97.812 Non-pressure chronic ulcer of other part of right lower leg with fat layer exposed | CPT/HCPCS: 97597; 97598 ==

== ENCOUNTER 2025-07-21 09:09 | Outpatient (CLI) | payer MEDICAID, SELFPAY | END 2025-07-21 09:10 | disposition home or self-care (01) | LOC: WOUND 09:09 | PROVIDERS: Visit Provider Nurse Practitioner Family | DX: I89.0 Lymphedema, not elsewhere classified (principal); I87.313 Chronic venous hypertension (idiopathic) with ulcer of bilateral lower extremity; L97.822 Non-pressure chronic ulcer of other part of left lower leg with fat layer exposed; L97.812 Non-pressure chronic ulcer of other part of right lower leg with fat layer exposed | CPT/HCPCS: 11042; 11045 ==